=== PATIENT | male | born 1970 ===

== ENCOUNTER → 2022-07-05 08:27 | Outpatient (CLI) | payer BC, SELFPAY ==
--- NOTE | ~2022-07-05 | MR_ITS ---
EXAMINATION: MR shoulder RT wo con DATE: 07/05/2022 09:07 INDICATION: Acute pain of right shoulder. TECHNIQUE: Magnetic resonance imaging (MRI) of the right shoulder was performed without intravenous c ontrast. Sequences included axial PD-weighted FS FSE, coronal oblique PD-weighted FS FSE and T2-weigh manuel FS FSE, and sagittal oblique T2-weighted FS FSE and T1-weighted FSE. COMPARISON: None. FINDINGS: Coracoacromial arch: The acromion undersurface is curved in morphology with anterior hook (type III). There is moderate ac romioclavicular joint osteoarthritis including inferiorly directed osteophytes. There is mild subacro mial/subdeltoid bursitis. Rotator cuff: There is moderate supraspinatus and infraspinatus tendinopathy with shallow bursal sided fraying. Ter es minor tendon is normal. There is mild subscapularis tendinopathy. There is no asymmetric fatty atr ophy of the rotator cuff muscle bellies. Biceps tendon and glenoid labrum: Biceps tendon is in bicipital groove. There is mild intra-articular biceps tendinopathy. There is a t ear of posterior labrum from 11:00 to 7:00. Fluid: There is a small glenohumeral joint effusion. Bones/cartilage: Glenoid cartilage is normal. Humeral cartilage is normal. IMPRESSION: 1. Moderate rotator cuff tendinopathy with shallow bursal sided fraying. 2. Labral tear. 3. Moderate acromioclavicular joint osteoarthritis. 4. Small glenohumeral joint effusion. 5. Mild intra-articular biceps tendinopathy. 6. Mild subacromial/subdeltoid bursitis. Reviewed, dictated and finalized at location A. [employer]
== END ==
DX: M19.011 Primary osteoarthritis, right shoulder (principal); M25.411 Effusion, right shoulder; M75.51 Bursitis of right shoulder
CPT/HCPCS: 73221